=== PATIENT | male | born 2005 | race Hispanic/Latino ===

== ENCOUNTER 2024-11-23 20:17 | Emergency (ER) | payer OTHER ==
[~2024-11-23] VITALS: Ht 175.3 cm; Wt 69.4 kg
[2024-11-23 20:28] VITALS: PULSE 81; RESP 19; TEMP 98.9
[2024-11-23 21:58] VITALS: BP 131/72; O2SAT 97
[2024-11-23] MEDS: IBUPROFEN 400 MG TAB PO STA (22:02)
== END 2024-11-23 21:15 | disposition home or self-care (01) ==
LOC: FSED 20:26
DX: S93.491A Sprain of other ligament of right ankle, initial encounter (principal); X50.1XXA Overexertion from prolonged static or awkward postures, initial encounter; Y93.67 Activity, basketball; Y92.89 Other specified places as the place of occurrence of the external cause
CPT/HCPCS: 99283